=== PATIENT | female | born 1955 | race Caucasian/White ===

== ENCOUNTER → 2017-07-09 10:52 | Outpatient (POV) | payer BC, SELFPAY ==
--- NOTE | 2017-07-09 11:59 | P.CONS_ITS ---
[facility] Pain Management SOAP Note Subjective:: This patient is a pleasant 62-year-old white female who we are treating for degenerative disc disease of lumbar spine with lumbar radiculopathy symptoms. She is currently on [place] 5 mg 1 tablet 4 times a day. She is doing well with her medication. Her Anthony and Urine drug screen are all appropriate. # [id number]. We Will Refill Her [place] 5 Mg 1 Tablet 4 Times A Day. I Will Give Her 2 Months [place] of Prescriptions. 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 We Will Follow-Up with Her in 3 Months. Objective:: Alert and oriented ?3 no acute distress. Patient has a normal gait. Motor strength of the lower extremities is 5/5. There is no gross sensory deficit. Assessment:: Degenerative disease of lumbar spine with lumbar radiculopathy symptoms. Plan:: We will refill her [place] 5 mg 1 tablet 4 times a day. I will give her 2 months worth of prescriptions. She can draft roller picker her third month here in the pain clinic. Will follow up with her in 3 months.
[2017-07-09 12:05] LABS: Amphetamine/Metha Screen,Urine Negative ng/mL (<1000); Barbiturates Screen,Urine Negative ng/mL (<200); Benzodiazepines Screen,Urine Negative ng/mL (200); Cannabinoid Screen,Urine Negative ng/mL (<50); Cocaine Screen,Urine Negative ng/g (<300); Methadone Screen,Urine Negative ng/mL (<300); Opiate Screen,Urine Positive ng/mL (<300); Phencyclidine Screen,Urine Negative ng/mL (<25)
[2017-07-09 12:17] VITALS: BP 117/84; PULSE 99; RESP 16; O2SAT 97
[2017-07-13 16:10] LABS: Codeine Negative (Cutoff=100); Hydrocodone Positive (.); Hydromorphone Positive (.); Morphine Negative (Cutoff=100)
[2017-07-13 22:13] LABS: Opiates Positive (.)
== END ==
PROVIDERS: Family Provider Family Medicine; PCP Family Medicine; Visit Provider Anesthesiology
DX: M51.16 Intervertebral disc disorders with radiculopathy, lumbar region (principal)
CPT/HCPCS: 80305; 80361; 99212; G0480

== ENCOUNTER → 2017-10-15 09:22 | Outpatient (POV) | payer BC, SELFPAY ==
[2017-10-15 09:56] VITALS: BP 170/95; PULSE 85; RESP 18; TEMP 36.3; O2SAT 95; BMI 20.3
--- NOTE | 2017-10-15 10:46 | HMH.PAINSOAP ---
[facility] Pain Management SOAP Note Subjective:: Patient is a pleasant 62-year-old white female who presents today for medication refills. Patient is currently being treated for pain secondary to degenerative disc disease of lumbar spine with lumbar radiculopathy symptoms. She is currently on [place] 5 mg 1 p.o. 4 times daily. She states she did very well with this. 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 She denies any side effects to the medication. She rates her pain a 3 out of 10 today. Patient's THOMAS #[id number] reviewed and appropriate. Patient's UDS appropriate in the past we will send her for new urine drug screen today. ROS General: no recent weight change, no fever, no sleep disturbances Respiratory: no cough, no shortness of air, no recurring pulmonary infections Cardiovascular/Peripheral Vascular: No chest pain, No palpitations, no edema, no shortness of breath. Gastrointestinal: no incontinence, normal bowel movements reported Genitourinary: no incontinence Musculoskeletal: Back pain, bilateral leg pain Psychiatric: normal mood/ affect, Neurological: [denies weakness in extremities], [denies balance issues] Objective:: Physical Exam General: Alert and oriented x3, no acute distress, pleasant and cooperative, [on room air] Lungs: Resps E/U, Symmetrical chest expansion, Eyes: PERRL Musculoskeletal: Flexion and extension of lumbar spine somewhat guarded secondary to pain, deep tendon reflexes normal, strength in upper and lower extremities [5/5], normal gait noted Neurological: speech clear, trauma therapist equal, no gross sensory deficits Assessment:: Degenerative disc disease of the lumbar spine with lumbar radiculopathy Plan:: We will refill this patient's medication [place] 5 mg 1 p.o. 4 times daily. We will give HER-2 months worth of prescriptions and she can pick her third month up in the interim. Patient's Thomas and UDS both reviewed and appropriate. Dr. Eric has reviewed this chart and agrees with this plan of care. We will send the patient for urine drug screen today and monitor her for compliance. We will follow-up with this patient in 3 months. Patient has been prescribed a controlled substance after being counseled on the medication, medication safety, and possible side effects. THOMAS report has been obtained and reviewed prior to prescription and found to be appropriate. Opioid contract was reviewed and signed by the patient, and that they have agreed to all of the terms set forth by our compliance program. This note was dictated using voice recognition software and may contain errors or omissions
--- NOTE | 2017-10-15 10:49 | P.CONS_ITS ---
[facility] Pain Management SOAP Note Subjective:: Patient is a pleasant 62-year-old white female who presents today for medication refills. Patient is currently being treated for pain secondary to degenerative disc disease of lumbar spine with lumbar radiculopathy symptoms. She is currently on [place] 5 mg 1 p.o. 4 times daily. She states she did very well with this. 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 She denies any side effects to the medication. She rates her pain a 3 out of 10 today. Patient's THOMAS #[id number] reviewed and appropriate. Patient's UDS appropriate in the past we will send her for new urine drug screen today. ROS General: no recent weight change, no fever, no sleep disturbances Respiratory: no cough, no shortness of air, no recurring pulmonary infections Cardiovascular/Peripheral Vascular: No chest pain, No palpitations, no edema, no shortness of breath. Gastrointestinal: no incontinence, normal bowel movements reported Genitourinary: no incontinence Musculoskeletal: Back pain, bilateral leg pain Psychiatric: normal mood/ affect, Neurological: [denies weakness in extremities], [denies balance issues] Objective:: Physical Exam General: Alert and oriented x3, no acute distress, pleasant and cooperative, [ on room air] Lungs: Resps E/U, Symmetrical chest expansion, Eyes: PERRL Musculoskeletal: Flexion and extension of lumbar spine somewhat guarded secondary to pain, deep tendon reflexes normal, strength in upper and lower extremities [5/5], normal gait noted Neurological: speech clear, social human services assistants equal, no gross sensory deficits Assessment:: Degenerative disc disease of the lumbar spine with lumbar radiculopathy Plan:: We will refill this patient's medication [place] 5 mg 1 p.o. 4 times daily. We will give HER-2 months worth of prescriptions and she can pick her third month up in the interim. Patient's Thomas and UDS both reviewed and appropriate. Dr. Eric has reviewed this chart and agrees with this plan of care. We will send the patient for urine drug screen today and monitor her for compliance. We will follow-up with this patient in 3 months. Patient has been prescribed a controlled substance after being counseled on the medication, medication safety, and possible side effects. THOMAS report has been obtained and reviewed prior to prescription and found to be appropriate. Opioid contract was reviewed and signed by the patient, and that they have agreed to all of the terms set forth by our compliance program. This note was dictated using voice recognition software and may contain errors or omissions
[2017-10-15 12:37] LABS: Amphetamine/Metha Screen,Urine Negative ng/mL (<1000); Barbiturates Screen,Urine Negative ng/mL (<200); Benzodiazepines Screen,Urine Negative ng/mL (200); Cannabinoid Screen,Urine Negative ng/mL (<50); Cocaine Screen,Urine Negative ng/g (<300); Methadone Screen,Urine Negative ng/mL (<300); Opiate Screen,Urine Positive ng/mL (<300); Phencyclidine Screen,Urine Negative ng/mL (<25)
[2017-10-20 09:40] LABS: Codeine Negative (Cutoff=100); Hydrocodone Positive (.); Hydromorphone Negative (Cutoff=100); Morphine Negative (Cutoff=100)
[2017-10-22 06:14] LABS: Opiates Positive (.)
== END ==
PROVIDERS: Family Provider Family Medicine; PCP Family Medicine; Visit Provider Clinical Nurse Specialist Family Health
DX: M54.16 Radiculopathy, lumbar region (principal); Z79.899 Other long term (current) drug therapy
CPT/HCPCS: 80305; 80361; 80365; 99212; G0480

== ENCOUNTER → 2018-01-13 10:11 | Outpatient (POV) | payer SELFPAY ==
[2018-01-13 10:34] VITALS: BP 134/88; PULSE 86; RESP 18; O2SAT 98; BMI 20.7
--- NOTE | 2018-01-13 10:42 | HMH.PAINSOAP ---
[facility] Pain Management SOAP Note Subjective:: She is a pleasant 62-year-old white female who presents today for medication refills. Patient is currently being treated for pain secondary to degenerative disc disease of lumbar spine with lumbar radiculopathy symptoms. Patient is currently being medically managed with [place] 5 mg 1 p.o. 4 times daily. Patient is currently between jobs. Patient states she is doing well on her medication. She rates her pain a 3 out of 10 today. She denies any side effects. Patient's THOMAS #[id number] reviewed and appropriate. Patient's urine drug screen has been appropriate in the past. ROS General: no recent weight change, no fever, no sleep disturbances Respiratory: no cough, no shortness of air, no recurring pulmonary infections Cardiovascular/Peripheral Vascular: No chest pain, No palpitations, no edema, no shortness of breath. Gastrointestinal: no incontinence, normal bowel movements reported Genitourinary: no incontinence Musculoskeletal: Back pain, bilateral leg pain Psychiatric: normal mood/ affect Neurological: [denies weakness in extremities], [denies balance issues] Objective:: Physical Exam General: Alert and oriented x3, no acute distress, pleasant and cooperative, [on room air] Lungs: Resps E/U, Symmetrical chest expansion, Eyes: PERRL Musculoskeletal: Flexion and extension of lumbar spine somewhat guarded secondary to pain, deep tendon reflexes normal, strength in upper and lower extremities [5/5], slightly antalgic gait noted Neurological: speech clear, microsoft exchange administrator equal, no gross sensory deficits Assessment:: Degenerative disc disease of lumbar spine with lumbar radiculopathy Plan:: We will refill the patient's [place] 5 mg 1 p.o. 4 times daily we will give HER-2 months worth of prescriptions. 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 Patient's Thomas and UDS both reviewed and appropriate. Dr. Eric is reviewed this chart and agrees with this plan of care. We will follow-up with the patient in 3 months Patient has been prescribed a controlled substance after being counseled on the medication, medication safety, and possible side effects. THOMAS report has been obtained and reviewed prior to prescription and found to be appropriate. Opioid contract was reviewed and signed by the patient, and that they have agreed to all of the terms set forth by our compliance program. This note was dictated using voice recognition software and may contain errors or omissions
--- NOTE | 2018-01-13 10:45 | P.CONS_ITS ---
[facility] Pain Management SOAP Note Subjective:: She is a pleasant 62-year-old white female who presents today for medication refills. Patient is currently being treated for pain secondary to degenerative disc disease of lumbar spine with lumbar radiculopathy symptoms. Patient is currently being medically managed with [place] 5 mg 1 p.o. 4 times daily. Patient is currently between jobs. Patient states she is doing well on her medication. She rates her pain a 3 out of 10 today. She denies any side effects. Patient's THOMAS #[id number] reviewed and appropriate. Patient's urine drug screen has been appropriate in the past. ROS General: no recent weight change, no fever, no sleep disturbances Respiratory: no cough, no shortness of air, no recurring pulmonary infections Cardiovascular/Peripheral Vascular: No chest pain, No palpitations, no edema, no shortness of breath. Gastrointestinal: no incontinence, normal bowel movements reported Genitourinary: no incontinence Musculoskeletal: Back pain, bilateral leg pain Psychiatric: normal mood/ affect Neurological: [denies weakness in extremities], [denies balance issues] Objective:: Physical Exam General: Alert and oriented x3, no acute distress, pleasant and cooperative, [ on room air] Lungs: Resps E/U, Symmetrical chest expansion, Eyes: PERRL Musculoskeletal: Flexion and extension of lumbar spine somewhat guarded secondary to pain, deep tendon reflexes normal, strength in upper and lower extremities [5/5], slightly antalgic gait noted Neurological: speech clear, spanish translator equal, no gross sensory deficits Assessment:: Degenerative disc disease of lumbar spine with lumbar radiculopathy Plan:: We will refill the patient's [place] 5 mg 1 p.o. 4 times daily we will give HER-2 months worth of prescriptions. 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 Patient's Thomas and UDS both reviewed and appropriate. Dr. Eric is reviewed this chart and agrees with this plan of care. We will follow-up with the patient in 3 months Patient has been prescribed a controlled substance after being counseled on the medication, medication safety, and possible side effects. THOMAS report has been obtained and reviewed prior to prescription and found to be appropriate. Opioid contract was reviewed and signed by the patient, and that they have agreed to all of the terms set forth by our compliance program. This note was dictated using voice recognition software and may contain errors or omissions
== END ==
PROVIDERS: Family Provider Family Medicine; PCP Family Medicine; Visit Provider Clinical Nurse Specialist Family Health
DX: M51.16 Intervertebral disc disorders with radiculopathy, lumbar region (principal)
CPT/HCPCS: 99212

== ENCOUNTER → 2018-04-22 09:01 | Outpatient (POV) | payer OTHER, SELFPAY ==
[2018-04-22 09:48] VITALS: BP 189/98; PULSE 85; RESP 18; O2SAT 98; BMI 19.5
[2018-04-22 10:27] LABS: Amphetamine/Metha Screen,Urine Positive ng/mL (<1000); Barbiturates Screen,Urine Negative ng/mL (<200); Benzodiazepines Screen,Urine Negative ng/mL (<200); Cannabinoid Screen,Urine Negative ng/mL (<50); Cocaine Screen,Urine Negative ng/mL (<300); Methadone Screen,Urine Negative ng/mL (<300); Opiate Screen,Urine Positive ng/mL (<300); Phencyclidine Screen,Urine Negative ng/mL (<25)
--- NOTE | 2018-04-22 12:02 | HMH.PAINSOAP ---
[facility] Pain Management SOAP Note Subjective:: She is a pleasant 63-year-old white female who presents today for medication refills. Patient is currently being treated for pain secondary to degenerative disc disease lumbar spine with lumbar radiculopathy. She rates her pain a 3 out of 10 today. She is currently being medically managed with [place] 5 mg 1 p.o. 4 times daily. She is currently working at 2 jobs. She denies side effects or medication. Patient's THOMAS #[id number] reviewed and appropriate. Patient's urine drug screen is appropriate today. Patient does show positive for amphetamines however she has been on Sudafed. ROS General: no recent weight change, no fever, no sleep disturbances Respiratory: no cough, no shortness of air, no recurring pulmonary infections Cardiovascular/Peripheral Vascular: No chest pain, No palpitations, no edema, no shortness of breath. Gastrointestinal: no incontinence, normal bowel movements reported Genitourinary: no incontinence Musculoskeletal: Back pain, bilateral leg pain Psychiatric: normal mood/ affect, Neurological: [denies weakness in extremities], [denies balance issues] Objective:: Physical Exam General: Alert and oriented x3, no acute distress, pleasant and cooperative, [on room air] Lungs: Resps E/U, Symmetrical chest expansion, Eyes: PERRL Musculoskeletal: Flexion and extension of lumbar spine somewhat guarded secondary to pain, deep tendon reflexes normal, strength in upper and lower extremities [5/5], slightly antalgic gait noted Neurological: speech clear, outside sales equal, no gross sensory deficits Assessment:: degenerative disc disease lumbar spine with lumbar radiculopathy Plan:: We will follow-up with the patient in 3 months. We will refill her [place] 5 mg 1 p.o. 4 times daily and give her 2 months worth. Patient can come and picker feeder her third 1 in the interim. Thomas and urine drug screen reviewed. Dr. Eric has reviewed this chart and agrees with this plan of care. Patient has been prescribed a controlled substance after being counseled on the medication, medication safety, and possible side effects. THOMAS report has been obtained and reviewed prior to prescription and found to be appropriate. Opioid contract was reviewed and signed by the patient, and that they have agreed to all of the terms set forth by our compliance program. This note was dictated using voice recognition software and may contain errors or omissions
[2018-04-28 09:09] LABS: Codeine Negative (Cutoff=100); Hydrocodone Positive (.); Hydromorphone Negative (Cutoff=100); Morphine Negative (Cutoff=100)
[2018-04-28 17:17] LABS: Opiates Positive (.)
== END ==
PROVIDERS: Family Provider Family Medicine; PCP Family Medicine; Visit Provider Clinical Nurse Specialist Family Health
DX: M51.36 Other intervertebral disc degeneration, lumbar region (principal)
CPT/HCPCS: 80305; 80361; 80365; 99213; G0480

== ENCOUNTER → 2018-07-14 11:14 | Outpatient (POV) | payer OTHER, SELFPAY ==
[2018-07-14 11:29] VITALS: BP 174/90; PULSE 84; RESP 18; O2SAT 98; BMI 20.3
--- NOTE | 2018-07-14 11:34 | HMH.PAINSOAP ---
[facility] Pain Management SOAP Note Subjective:: Patient is a pleasant 63-year-old white female who presents today for medication refills. She is currently being treated for pain secondary to degenerative disc disease of the lumbar spine with lumbar radiculopathy she rates her pain today a 4 out of 10. She is currently being medically managed with [place] 5 mg 1 p.o. 4 times daily. She is currently working 2 jobs. She denies any side effects or medication. THOMAS #[id number] reviewed. ROS General: no recent weight change, no fever, no sleep disturbances Respiratory: no cough, no shortness of air, no recurring pulmonary infections Cardiovascular/Peripheral Vascular: No chest pain, No palpitations, no edema, no shortness of breath. Gastrointestinal: no incontinence, normal bowel movements reported Genitourinary: no incontinence Musculoskeletal: Back pain, Bilateral leg pain Psychiatric: normal mood/ affect Neurological: [denies weakness in extremities], [denies balance issues] Objective:: Physical Exam General: Alert and oriented x3, no acute distress, pleasant and cooperative, [on room air] Lungs: Resps E/U, Symmetrical chest expansion, Eyes: PERRL Musculoskeletal: Flexion and extension of lumbar spine somewhat guarded secondary to pain, deep tendon reflexes normal, strength in upper and lower extremities [5/5], slightly antalgic gait noted Neurological: speech clear, soa engineer equal, no gross sensory deficits Assessment:: Degenerative disc disease lumbar spine with lumbar radiculopathy Plan:: We will follow-up with the patient in 3 months. We will refill her [place] 5 mg 1 p.o. 4 times daily and give her 2 months worth. Patient can come and mushroom picker her third month in the interim. Dr. Eric is reviewed this chart and agrees with this plan of care. Patient has been prescribed a controlled substance after being counseled on the medication, medication safety, and possible side effects. THOMAS report has been obtained and reviewed prior to prescription and found to be appropriate. Opioid contract was reviewed and signed by the patient, and that they have agreed to all of the terms set forth by our compliance program. This note was dictated using voice recognition software and may contain errors or omissions
--- NOTE | 2018-07-14 11:37 | P.CONS_ITS ---
[facility] Pain Management SOAP Note Subjective:: Patient is a pleasant 63-year-old white female who presents today for medication refills. She is currently being treated for pain secondary to degenerative disc disease of the lumbar spine with lumbar radiculopathy she rates her pain today a 4 out of 10. She is currently being medically managed with [place] 5 mg 1 p.o. 4 times daily. She is currently working 2 jobs. She denies any side effects or medication. THOMAS #[id number] reviewed. ROS General: no recent weight change, no fever, no sleep disturbances Respiratory: no cough, no shortness of air, no recurring pulmonary infections Cardiovascular/Peripheral Vascular: No chest pain, No palpitations, no edema, no shortness of breath. Gastrointestinal: no incontinence, normal bowel movements reported Genitourinary: no incontinence Musculoskeletal: Back pain, Bilateral leg pain Psychiatric: normal mood/ affect Neurological: [denies weakness in extremities], [denies balance issues] Objective:: Physical Exam General: Alert and oriented x3, no acute distress, pleasant and cooperative, [on room air] Lungs: Resps E/U, Symmetrical chest expansion, Eyes: PERRL Musculoskeletal: Flexion and extension of lumbar spine somewhat guarded secondary to pain, deep tendon reflexes normal, strength in upper and lower extremities [5/5], slightly antalgic gait noted Neurological: speech clear, city secretary equal, no gross sensory deficits Assessment:: Degenerative disc disease lumbar spine with lumbar radiculopathy Plan:: We will follow-up with the patient in 3 months. We will refill her [place] 5 mg 1 p.o. 4 times daily and give her 2 months worth. Patient can come and picking machine operator helper her third month in the interim. Dr. Eric is reviewed this chart and agrees with this plan of care. Patient has been prescribed a controlled substance after being counseled on the medication, medication safety, and possible side effects. THOMAS report has been obtained and reviewed prior to prescription and found to be appropriate. Opioid contract was reviewed and signed by the patient, and that they have agreed to all of the terms set forth by our compliance program. This note was dictated using voice recognition software and may contain errors or omissions
== END ==
PROVIDERS: PCP Family Medicine; Visit Provider Clinical Nurse Specialist Family Health
DX: M51.16 Intervertebral disc disorders with radiculopathy, lumbar region (principal)
CPT/HCPCS: 99213

== ENCOUNTER → 2018-10-28 10:01 | Outpatient (POV) | payer OTHER, SELFPAY ==
--- NOTE | 2018-10-28 10:09 | HMH.PAINSOAP ---
[facility] Pain Management SOAP Note Subjective:: Is a very pleasant 63-year-old white female who presents today for medication refills and to discuss her treatment. 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 Patient had RFA 2 years ago in which she is gotten 80% relief until just recently. Patient would like to repeat this. She states her left side is worse. She has a positive Kemps test. And positive facet loading lumbar spine. She has had pain for over 3 years and has failed conservative treatments over the past 6 months. She has had 2 rounds of medial branch blocks which were successful in alleviating her pain for some time. Patient is also on [place] 5 mg 1 p.o. 4 times daily. She denies side effects. Is currently working 2 jobs. Thomas reviewed and appropriate. ROS General: no recent weight change, no fever, no sleep disturbances Respiratory: no cough, no shortness of air, no recurring pulmonary infections Cardiovascular/Peripheral Vascular: No chest pain, No palpitations, no edema, no shortness of breath. Gastrointestinal: no incontinence, normal bowel movements reported Genitourinary: no incontinence Musculoskeletal: Back pain Psychiatric: normal mood/ affect Neurological: [denies weakness in extremities], [denies balance issues] Objective:: Physical Exam General: Alert and oriented x3, no acute distress, pleasant and cooperative, [on room air] Lungs: Resps E/U, Symmetrical chest expansion, Eyes: PERRL Musculoskeletal: Flexion and extension of Lumbar spine somewhat guarded secondary to pain, deep tendon reflexes normal, strength in upper and lower extremities [5/5], slightly antalgic gait noted, positive facet loading lumbar spine Neurological: speech clear, professional benefits sales consultant equal, no gross sensory deficits Assessment:: Degenerative disc disease lumbar spine with lumbar spondylosis and facet arthropathy Plan:: We will schedule her for an RFA of the L4-L5 levels bilaterally we will start with the left side and repeated in 2 weeks on the right side. We will refill her [place] 5 mg 1 p.o. 4 times daily and give her 2 months with a prescription she can pick her third month up in the interim. I will follow-up with the patient after this and reassess her symptoms. She is been instructed to call the office if she has any issues prior to her next appointment. She is continuing a home stretching program and is not on any anticoagulation therapy. Patient has been prescribed a controlled substance after being counseled on the medication, medication safety, and possible side effects. THOMAS report has been obtained and reviewed prior to prescription and found to be appropriate. Opioid contract was reviewed and signed by the patient, and that they have agreed to all of the terms set forth by our compliance program. Dr. Eric has reviewed this note and agrees with this plan of care. This note was dictated using voice recognition software and may contain errors or omissions
--- NOTE | 2018-10-28 10:13 | P.CONS_ITS ---
[facility] Pain Management SOAP Note Subjective:: Is a very pleasant 63-year-old white female who presents today for medication refills and to discuss her treatment. 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 Patient had RFA 2 years ago in which she is gotten 80% relief until just recently. Patient would like to repeat this. She states her left side is worse. She has a positive Kemps test. And positive facet loading lumbar spine. She has had pain for over 3 years and has failed conservative treatments over the past 6 months. She has had 2 rounds of medial branch blocks which were successful in alleviating her pain for some time. Patient is also on [place] 5 mg 1 p.o. 4 times daily. She denies side effects. Is currently working 2 jobs. Thomas reviewed and appropriate. ROS General: no recent weight change, no fever, no sleep disturbances Respiratory: no cough, no shortness of air, no recurring pulmonary infections Cardiovascular/Peripheral Vascular: No chest pain, No palpitations, no edema, no shortness of breath. Gastrointestinal: no incontinence, normal bowel movements reported Genitourinary: no incontinence Musculoskeletal: Back pain Psychiatric: normal mood/ affect Neurological: [denies weakness in extremities], [denies balance issues] Objective:: Physical Exam General: Alert and oriented x3, no acute distress, pleasant and cooperative, [on room air] Lungs: Resps E/U, Symmetrical chest expansion, Eyes: PERRL Musculoskeletal: Flexion and extension of Lumbar spine somewhat guarded secondary to pain, deep tendon reflexes normal, strength in upper and lower extremities [5/5], slightly antalgic gait noted, positive facet loading lumbar spine Neurological: speech clear, rug inspector helper equal, no gross sensory deficits Assessment:: Degenerative disc disease lumbar spine with lumbar spondylosis and facet arthropathy Plan:: We will schedule her for an RFA of the L4-L5 levels bilaterally we will start with the left side and repeated in 2 weeks on the right side. We will refill her Ponderosa 5 mg 1 p.o. 4 times daily and give her 2 months with a prescription she can pick her third month up in the interim. I will follow-up with the ladonna koenig after this and reassess her symptoms. She is been instructed to call the office if she has any issues prior to her next appointment. She is continuing a home stretching program and is not on any anticoagulation therapy. Patient has been prescribed a controlled substance after being counseled on the medication, medication safety, and possible side effects. THOMAS report has been obtained and reviewed prior to prescription and found to be appropriate. Opioid contract was reviewed and signed by the patient, and that they have agreed to all of the terms set forth by our compliance program. Dr. Eric has reviewed this note and agrees with this plan of care. This note was dictated using voice recognition software and may contain errors or omissions
[2018-10-28 10:18] VITALS: BP 178/95; PULSE 82; RESP 18; O2SAT 99; BMI 21.2
[2018-10-28 12:01] LABS: Amphetamine/Metha Screen,Urine Negative ng/mL (<1000); Barbiturates Screen,Urine Negative ng/mL (<200); Benzodiazepines Screen,Urine Negative ng/mL (<200); Cannabinoid Screen,Urine Negative ng/mL (<50); Cocaine Screen,Urine Negative ng/mL (<300); Methadone Screen,Urine Negative ng/mL (<300); Opiate Screen,Urine Positive ng/mL (<300); Phencyclidine Screen,Urine Negative ng/mL (<25)
[2018-11-04 01:06] LABS: Codeine Negative (Cutoff=100); Hydrocodone Positive (.); Hydromorphone Negative (Cutoff=100); Morphine Negative (Cutoff=100)
[2018-11-04 10:12] LABS: Opiates Positive (.)
== END ==
PROVIDERS: PCP Family Medicine; Visit Provider Clinical Nurse Specialist Family Health
DX: M51.36 Other intervertebral disc degeneration, lumbar region (principal); M47.896 Other spondylosis, lumbar region; M54.06 Panniculitis affecting regions of neck and back, lumbar region; Z79.899 Other long term (current) drug therapy
CPT/HCPCS: 80305; 80361; 80365; 99212; G0480

== ENCOUNTER 2018-12-26 10:11 | Day surgery (SDC) | payer OTHER, SELFPAY ==
[2018-12-26 10:23] VITALS: BP 158/91; PULSE 87; RESP 18; O2SAT 100; BMI 20.3
[2018-12-26 10:57] VITALS: BP 135/85; PULSE 69; RESP 18; O2SAT 98
[2018-12-26 10:58] VITALS: BP 132/88; PULSE 69; RESP 18; O2SAT 98
--- NOTE | 2018-12-26 11:17 | HMH.PMPROC ---
- Procedure Date: 12/26/18 Time: 11:17 Anesthesiologist:: Shahram Eric MD Complications:: None Pre-procedure Diagnosis:: Degenerative disc disease of lumbar spine with lumbar spondylosis and facet arthropathy of lumbar spine Post-procedure Diagnosis:: Same Indications for Procedure:: This patient is a pleasant 63-year-old white female who we are treating for low back pain with lumbar spondylosis and facet arthropathy. She has increasing pain in the low back. She is previously had an RFA 2 years ago and this gave her 80% relief of her pain symptoms for almost 2 years. Her pain is now starting to come back. She is failed conservative treatments. She presents for repeat radiofrequency ablation to the facet joints of L4-5 and L5-S1. We will start with the left side today followed by the right side in 2 weeks. Procedure Details:: Lumbar RFA informed consent was obtained and the risk and benefits of the procedure was explained to the patient. Patient was placed prone on the procedure table. The patient was prepped and draped in sterile fashion. C-arm fluoroscopy was used to view the lumbar spine. The skin and subcutaneous tissues were anesthetized using lidocaine. I placed 20-gauge RF needles into the facet joints of L4-L5 and L5-S1 levels on the left side. We underwent sensory stimulation. There is good sensory stimulation at 0.8 V. We underwent motor stimulation. There is no motor stimulation at 2 V. We then anesthetized these levels with lidocaine and Depo-Medrol. I used a total of 40 mg Depo-Medrol for both levels. I then burned both levels of L4-5 and L5-S1 facet joint/medial branches on the left side for 4 minutes at 80?C. Patient tolerated the procedure well with no complication. Plan and Disposition:: We will follow-up with this patient in 2 weeks. Will reevaluate her symptoms and plan on radiofrequency ablation to the facet joint/medial branches of L4-5 and L5-S1 on the right side.
[2018-12-26 11:18] VITALS: BP 134/79; PULSE 81; RESP 18; O2SAT 95
--- NOTE | 2019-01-12 13:36 | PC.NURSE ---
TIZANIDINE 4MG PO TID WITH 2 REFILLS FAXED TO CLINIC PHARMACY PER PROVIDER ORDER
== END 2018-12-26 11:19 | disposition home or self-care (01) ==
LOC: SC.PAINP 10:12
PROVIDERS: PCP Family Medicine; Visit Provider Anesthesiology
DX: M51.36 Other intervertebral disc degeneration, lumbar region (principal); M47.896 Other spondylosis, lumbar region; M54.06 Panniculitis affecting regions of neck and back, lumbar region
CPT/HCPCS: 64635; 64636; J1040

== ENCOUNTER → 2019-03-03 10:46 | Outpatient (POV) | payer OTHER, SELFPAY ==
[2019-03-03 11:09] VITALS: BP 151/93; PULSE 97; RESP 18; O2SAT 98; BMI 20.7
--- NOTE | 2019-03-03 12:16 | HMH.PAINSOAP ---
[facility] Pain Management SOAP Note Subjective:: Patient is a pleasant 64-year-old white female who we are treating for low back pain. Patient has undergone a left sided RFA at the L4-L5 L5-S1 levels. She is having no pain. Overall she is doing well. She needs to repeat this on the right side. She is had 2 rounds of medial branch blocks on the right side with good relief getting up to 80% relief for a week and a half. She is a candidate for a neurotomy. She rates her right-sided back pain at is an 8 out of 10 she is a positive facet loading on the side along with positive Kemps test. She is continuing to try to work. Is also [place] 5 mg 1 p.o. 4 times daily which she hopes to decrease after her RFA. She is continuing a home stretching program. She is failed other conservative measures over the last 6 months including injective therapy anti-inflammatories medications and physical therapy. [facility] #[id number] reviewed and appropriate. Urine drug screens have been appropriate ROS General: no recent weight change, no fever, no sleep disturbances Respiratory: no cough, no shortness of air, no recurring pulmonary infections Cardiovascular/Peripheral Vascular: No chest pain, No palpitations, no edema, no shortness of breath. Gastrointestinal: no incontinence, normal bowel movements reported Genitourinary: no incontinence Musculoskeletal: Back pain on the right side Psychiatric: normal mood/ affect, , Neurological: [denies weakness in extremities], [denies balance issues] Objective:: Physical Exam General: Alert and oriented x3, no acute distress, pleasant and cooperative, [on room air] Lungs: Resps E/U, Symmetrical chest expansion, Eyes: PERRL Musculoskeletal: Flexion and extension of lumbar spine somewhat guarded secondary to pain, deep tendon reflexes normal, strength in upper and lower extremities [5/5], [abnormal gait noted] Neurological: speech clear, full stack engineer equal, no gross sensory deficits Assessment:: Degenerative disc disease lumbar spine with lumbar spondylosis and facet arthropathy of lumbar spine Plan:: We will refill her [place] 5 mg 1 p.o. 4 times daily and give her 2 months worth of medication. We will also schedule her for a right L4-L5 L5-S1 rhizotomy given the efficacy of the medial branch blocks I believe it would be beneficial for her. I will follow-up with the patient after this reassess her symptoms at that time. Patient has been prescribed a controlled substance after being counseled on the medication, medication safety, and possible side effects. THOMAS report has been obtained and reviewed prior to prescription and found to be appropriate. Opioid contract was reviewed and signed by the patient, and that they have agreed to all of the terms set forth by our compliance program. Dr. Eric has reviewed this note and agrees with this plan of care. This note was dictated using voice recognition software and may contain errors or omissions Pain Management Hx Components *Have you ever received a pneumonia vaccine?: Yes *Have you received a flu vaccine this season?: Yes - *Social History *Occupational Status:: other *Travel in the last 8 weeks: None
--- NOTE | 2019-03-03 12:19 | P.CONS_ITS ---
[facility] Pain Management SOAP Note Subjective:: Patient is a pleasant 64-year-old white female who we are treating for low back pain. Patient has undergone a left sided RFA at the L4-L5 L5-S1 levels. She is having no pain. Overall she is doing well. She needs to repeat this on the right side. She is had 2 rounds of medial branch blocks on the right side with good relief getting up to 80% relief for a week and a half. She is a candidate for a neurotomy. She rates her right-sided back pain at is an 8 out of 10 she is a positive facet loading on the side along with positive Kemps test. She is continuing to try to work. Is also [place] 5 mg 1 p.o. 4 times daily which she hopes to decrease after her RFA. She is continuing a home stretching program. She is failed other conservative measures over the last 6 months including injective therapy anti-inflammatories medications and physical therapy. [facility] #[id number] reviewed and appropriate. Urine drug screens have been appropriate ROS General: no recent weight change, no fever, no sleep disturbances Respiratory: no cough, no shortness of air, no recurring pulmonary infections Cardiovascular/Peripheral Vascular: No chest pain, No palpitations, no edema, no shortness of breath. Gastrointestinal: no incontinence, normal bowel movements reported Genitourinary: no incontinence Musculoskeletal: Back pain on the right side Psychiatric: normal mood/ affect, , Neurological: [denies weakness in extremities], [denies balance issues] Objective:: Physical Exam General: Alert and oriented x3, no acute distress, pleasant and cooperative, [on room air] Lungs: Resps E/U, Symmetrical chest expansion, Eyes: PERRL Musculoskeletal: Flexion and extension of lumbar spine somewhat guarded secondary to pain, deep tendon reflexes normal, strength in upper and lower extremities [5/5], [abnormal gait noted] Neurological: speech clear, make up arranger equal, no gross sensory deficits Assessment:: Degenerative disc disease lumbar spine with lumbar spondylosis and facet arthropathy of lumbar spine Plan:: We will refill her [place] 5 mg 1 p.o. 4 times daily and give her 2 months worth of medication. We will also schedule her for a right L4-L5 L5-S1 rhizotomy given the efficacy of the medial branch blocks I believe it would be beneficial for her. I will follow-up with the patient after this reassess her symptoms at that time. Patient has been prescribed a controlled substance after being counseled on the medication, medication safety, and possible side effects. THOMAS report has been obtained and reviewed prior to prescription and found to be appropriate. Opioid contract was reviewed and signed by the patient, and that they have agreed to all of the terms set forth by our compliance program. Dr. Eric has reviewed this note and agrees with this plan of care. This note was dictated using voice recognition software and may contain errors or omissions Pain Management Hx Components *Have you ever received a pneumonia vaccine?: Yes *Have you received a flu vaccine this season?: Yes - *Social History *Occupational Status:: other *Travel in the last 8 weeks: None
== END ==
PROVIDERS: PCP Family Medicine; Visit Provider Clinical Nurse Specialist Family Health
DX: M51.36 Other intervertebral disc degeneration, lumbar region (principal); M54.06 Panniculitis affecting regions of neck and back, lumbar region; M47.896 Other spondylosis, lumbar region
CPT/HCPCS: 99212

== ENCOUNTER → 2019-04-21 09:09 | Outpatient (POV) | payer OTHER, SELFPAY ==
[2019-04-21 09:21] VITALS: BP 150/101; PULSE 101; RESP 18; O2SAT 98; BMI 19.5
[2019-04-21 13:34] LABS: Amphetamine/Metha Screen,Urine Positive ng/mL (<1000); Barbiturates Screen,Urine Negative ng/mL (<200); Benzodiazepines Screen,Urine Negative ng/mL (<200); Cannabinoid Screen,Urine Negative ng/mL (<50); Cocaine Screen,Urine Negative ng/mL (<300); Methadone Screen,Urine Negative ng/mL (<300); Opiate Screen,Urine Negative ng/mL (<300); Phencyclidine Screen,Urine Negative ng/mL (<25)
--- NOTE | 2019-04-21 15:18 | P.CONS_ITS ---
[facility] Pain Management SOAP Note Subjective:: She is a pleasant 64-year-old white female who presents today for follow-up after recent RFA. Patient is doing extremely well rating her pain a 3 out of 10. Patient states that she has had 90% relief with her recent RFA. She is also [place] 5 mg 1 p.o. 4 times daily. We will refill this for her today she denies side effects to this. Her urine drug screens have been appropriate. Thomas #[id number] reviewed and appropriate. ROS General: no recent weight change, no fever, no sleep disturbances Respiratory: no cough, no shortness of air, no recurring pulmonary infections Cardiovascular/Peripheral Vascular: No chest pain, No palpitations, no edema, no shortness of breath. Gastrointestinal: no new onset incontinence, normal bowel movements reported Genitourinary: no new onset incontinence Musculoskeletal: Back pain Psychiatric: normal mood/ affect Neurological: [denies new onset weakness in extremities], [denies new onset balance issues] Objective:: Physical Exam General: Alert and oriented x3, no acute distress, pleasant and cooperative, [on room air] Lungs: Resps E/U, Symmetrical chest expansion, Eyes: PERRL Musculoskeletal: Flexion and extension of lumbar spine somewhat guarded secondary to pain, deep tendon reflexes normal, strength in upper and lower extremities [5/5], [abnormal gait noted] Neurological: speech clear, transfer table operator equal, no gross sensory deficits Assessment:: Degenerative disc disease lumbar spine with lumbar spondylosis facet arthropathy Plan:: We will refill the patient's [place] 5 mg 1 p.o. 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 We will see her back in 3 months reassess her symptoms at that time she is been instructed to call the office if she has any issues prior to her next appointment. Patient has been prescribed a controlled substance after being counseled on the medication, medication safety, and possible side effects. THOMAS report has been obtained and reviewed prior to prescription and found to be appropriate. Opioid contract was reviewed and signed by the patient, and that they have agreed to all of the terms set forth by our compliance program. Dr. Eric has reviewed this note and agrees with this plan of care. This note was dictated using voice recognition software and may contain errors or omissions [facility] History I have reviewed the patient's past medical history: Yes Medical History: Reports:: Hyperlipidemia, Hypertension Denies:: Cancer, Diabetes Mellitus Type 1, Diabetes Mellitus Type 2, MRSA, Seizures *Have you ever received a pneumonia vaccine?: No *Have you received a flu vaccine this season?: No Other Surgeries: Yes: No Previous Surgery Amputation: No Fractures: No - *Social History Smoking Status: Current every day smoker Tobacco Type: cigarettes # Packs/Day (cigarettes): 1 Alcohol Intake: never *Occupational Status:: employed Housing: house Household Members: spouse *Travel in the last 8 weeks: None Family Hx:: No significant family history
[2019-04-25 16:14] LABS: Codeine Negative (Cutoff=100); Hydrocodone Positive (.); Hydromorphone Negative (Cutoff=100); Morphine Negative (Cutoff=100)
[2019-04-25 20:01] LABS: Opiates Positive (.)
== END ==
PROVIDERS: PCP Family Medicine; Visit Provider Clinical Nurse Specialist Family Health
DX: M51.36 Other intervertebral disc degeneration, lumbar region (principal); M47.816 Spondylosis without myelopathy or radiculopathy, lumbar region
CPT/HCPCS: 80305; 80361; 80365; 99212; G0480

== ENCOUNTER → 2019-07-20 09:23 | Outpatient (POV) | payer MEDICAID, SELFPAY ==
[2019-07-20 09:36] VITALS: BP 169/89; PULSE 97; RESP 18; O2SAT 99; BMI 20.3
--- NOTE | 2019-07-20 10:26 | HMH.PAINSOAP ---
[facility] Pain Management SOAP Note Subjective:: Patient is a pleasant 64-year-old white female who presents today for follow-up. Patient was supposed to go for urine drug screen on 26 June and then again on the however she stated due to work she was unable to go. Patient rates her pain a 3 out of 10. We discussed that we would not be able to continue her [place]. Patient understands this. [facility] #[id number] reviewed. Patient will be given 1 month of medication. Patient would like to continue with facet joint injections. She states that she gets up to 80% relief with these injections for several months. Patient states that her left side of her body has been bothering her. She is interested in pursuing some injections at this time. She is not on any anticoagulation therapy and is continuing a home stretching program. ROS General: no recent weight change, no fever, no sleep disturbances Respiratory: no cough, no shortness of air, no recurring pulmonary infections Cardiovascular/Peripheral Vascular: No chest pain, No palpitations, no edema, no shortness of breath. Gastrointestinal: no new onset incontinence, normal bowel movements reported Genitourinary: no new onset incontinence Musculoskeletal: Back pain Psychiatric: normal mood/ affect, Neurological: [denies new onset weakness in extremities], [denies new onset balance issues] Objective:: Physical Exam General: Alert and oriented x3, no acute distress, pleasant and cooperative, [on room air] Lungs: Resps E/U, Symmetrical chest expansion, Eyes: PERRL Musculoskeletal: Flexion and extension of lumbar spine somewhat guarded secondary to pain, deep tendon reflexes normal, strength in upper and lower extremities [5/5], slightly antalgic gait noted, positive Kemps test, positive facet loading lumbar spine Neurological: speech clear, cook helper vegetable equal, no gross sensory deficits Assessment:: Degenerative disc disease lumbar spine with lumbar spondylosis and facet arthropathy Plan:: We will give the patient 1 month of [place] 5 mg 1 p.o. 4 times daily and she can go to her primary care for consultation in regards to move forward movement with her narcotics. She will not be receiving any more narcotics from our clinic. We also set her up for an L4-L5 left-sided facet joint injection. Patient states most of her pain is on this left side. Dr. Eric has reviewed this note and agrees with this plan of care. This note was dictated using voice recognition software and may contain errors or omissions [facility] History I have reviewed the patient's past medical history: Yes Medical History: Reports:: Hyperlipidemia, Hypertension Denies:: Cancer, Diabetes Mellitus Type 1, Diabetes Mellitus Type 2, MRSA, Seizures *Have you ever received a pneumonia vaccine?: Yes *Have you received a flu vaccine this season?: Yes Other Surgeries: Yes: No Previous Surgery Amputation: No Fractures: No - *Social History Smoking Status: Current every day smoker Tobacco Type: cigarettes # Packs/Day (cigarettes): 1 Alcohol Intake: never *Occupational Status:: other Housing: house Household Members: spouse *Travel in the last 8 weeks: None Family Hx:: No significant family history
== END ==
PROVIDERS: PCP Family Medicine; Visit Provider Clinical Nurse Specialist Family Health
DX: M51.36 Other intervertebral disc degeneration, lumbar region (principal); M47.816 Spondylosis without myelopathy or radiculopathy, lumbar region; M54.06 Panniculitis affecting regions of neck and back, lumbar region; E78.5 Hyperlipidemia, unspecified; I10 Essential (primary) hypertension; Z72.0 Tobacco use
CPT/HCPCS: 99212

== ENCOUNTER → 2020-04-21 11:02 | Outpatient (POV) | payer MEDICAID, SELFPAY ==
[2020-04-21 11:18] VITALS: BP 112/77; PULSE 71; RESP 18; TEMP 36.8; O2SAT 98; BMI 20.9
--- NOTE | 2020-04-21 11:42 | HMH.PAINSOAP ---
[facility] Pain Management SOAP Note Subjective:: Patient is a 65-year-old white female who presents today for follow-up. She has been treated for chronic low back pain with lumbar radiculopathy symptoms worsen lumbar spondylosis and facet arthropathy lumbar spine. In the past, the patient was prescribed [place] 5 mg 1 tablet p.o. 4 times daily. Unfortunately, the patient was unable to go to to random urine drug screens. She says that she was working at that time. As a result, the patient was no longer prescribe the medication. She is here today with complaints of severe low back pain with radiation into her left leg and left hip. She also has right low back pain with numbness and tingling and burning sensation. The pain is worse when she is leaning forward and turning from side to side. Patient is requesting her [place] to be prescribed again. She is currently prescribed ties Aliyah Kumar by her primary care provider. She is very tearful today. Patient says I have not been doctor shopping and have not taken the medication since my last visit with you. . Patient says that she had to work and cannot take off at that time for the urine drug screens. She does rate her pain a 7 out of 10 today. Review of Systems General: No recent weight changes, no fever, no sleep disturbances Respiratory: No cough, no shortness of air, no recurring pulmonary infections Cardiovascular/peripheral vascular: No chest pain, no palpitations, no edema, no shortness of breath Gastrointestinal: No new onset incontinence, normal bowel movements reported Genitourinary: No new onset incontinence Musculoskeletal: Low back pain bilaterally, left hip pain, left leg pain, right hip pain with numbness and tingling Psychiatric: Normal mood/affect Neurological: [Denies weakness in extremities], [denies balance issues] Objective:: Physical exam General: Alert and oriented x3, no acute distress, pleasant and cooperative, [on room air] Lungs: Respirations even and unlabored, symmetrical chest expansion Eyes: PERRL Musculoskeletal: Flexion and extension of lumbar spine somewhat guarded secondary to pain, deep tendon reflexes normal, strength in upper and lower extremities [5/5], [abnormal gait noted], positive Kemps test Neurological: Speech clear, cartoon designer equal, no gross sensory deficit Assessment:: Degenerative disc disease lumbar spine with facet arthropathy lumbar spine and lumbar spondylosis Plan:: Patient I had a long discussion concerning her oral medications. She understands we will not be able to continue to prescribe these medicines due to failed urine drug screens. We can, however, schedule her for repeat medial branch blocks/facet joint injections at L4-L5 L5-S1. Patient got up to 80% relief with these injections in the past for greater than 2 to 3 weeks. She has tried physical therapy with no relief. She tried home stretching program and anti-inflammatories. She is currently on tizanidine. She does use ice and heat therapies. She is not on any anticoagulation therapy. We will see her back in the clinic after her injections to reassess her symptoms. She has been instructed to contact the clinic if she has any concerns before next appointment. The patient and I specifically discussed risk factors for COVID19. These risks include, but are not limited to age greater than 60, heart or lung disease, diabetes, immunosuppression, and travel. We also discussed NSAIDs may worsen COVID19 infection or symptoms. Patient should not use NSAIDs to treat COVID19 signs or symptoms. Patient was also informed that any type of corticosteroid of any form (oral or injection) will decrease the patient's immune system response and may increase the likelihood of COVID19 infection [address] symptoms[address] Eric has reviewed this note and agrees with this plan of care. This note was dictated using voice recognition software and make contain errors or omissions. [facility] History I have reviewed
== END ==
PROVIDERS: PCP Family Medicine; Visit Provider Clinical Nurse Specialist Family Health
DX: M51.36 Other intervertebral disc degeneration, lumbar region (principal); M47.816 Spondylosis without myelopathy or radiculopathy, lumbar region; M12.88 Other specific arthropathies, not elsewhere classified, other specified site
CPT/HCPCS: 99212

== ENCOUNTER 2020-05-06 13:09 | Day surgery (SDC) | payer MEDICAID, SELFPAY ==
[2020-05-06 13:10] VITALS: BP 187/109; PULSE 75; RESP 18; TEMP 36.4; O2SAT 99; BMI 21.2
[2020-05-06 13:39] VITALS: BP 125/74; PULSE 85; RESP 18
[2020-05-06 13:40] VITALS: BP 142/78; PULSE 89; RESP 18; O2SAT 98
--- NOTE | 2020-05-06 13:48 | HMH.PMPROC ---
- Procedure Date: 05/06/20 Time: 13:48 Anesthesiologist:: Shahram Eric MD Complications:: None Pre-procedure Diagnosis:: Degenerative disc disease of lumbar spine with lumbar spondylosis and lumbar facet arthropathy Post-procedure Diagnosis:: Same Indications for Procedure:: This patient is a pleasant 65-year-old white female who we are treating for low back pain with lumbar spondylosis and lumbar facet arthropathy. She has increasing pain in her low back. She is tender over the facet joints of L4-5 and L5-S1 bilaterally. She did very well with previous RFA to the lumbar facet joints of L4-5 and L5-S1. Procedure Details:: Lumbar medial branch block Informed consent was obtained and the risks and benefits of the procedure was explained to the patient. The back was prepped using ChloraPrep. The skin and subcutaneous tissues were anesthetized using lidocaine. I placed 22-gauge spinal needles into the facet joint/medial branches of L4-L5 and L5-S1 bilaterally. Needle placement was confirmed with dye. After this we injected 3 mL bupivacaine 0.25% and Depo-Medrol 13 mg into each facet joint/medial branch of L4-L5 and L5-S1 bilaterally. We used a total of 80 mg Depo-Medrol for both levels bilaterally. The patient tolerated the procedure well with no complications. Plan and Disposition:: We will follow-up with her in 2 weeks. Will reevaluate symptoms at that time. If these are successful we can do RFA to the facet joint/medial branches of L4-5 and L5-S1 bilaterally.
[2020-05-06 13:55] VITALS: BP 176/99; PULSE 74; RESP 18; O2SAT 99
== END 2020-05-06 13:55 | disposition home or self-care (01) ==
LOC: SC.PAINP 13:10
PROVIDERS: PCP Family Medicine; Visit Provider Anesthesiology
DX: M51.36 Other intervertebral disc degeneration, lumbar region (principal); M12.88 Other specific arthropathies, not elsewhere classified, other specified site; M47.816 Spondylosis without myelopathy or radiculopathy, lumbar region; I10 Essential (primary) hypertension; I49.9 Cardiac arrhythmia, unspecified; J45.909 Unspecified asthma, uncomplicated; Z72.0 Tobacco use; Z79.899 Other long term (current) drug therapy
CPT/HCPCS: 64493; 64494; J1030; Q9966

== ENCOUNTER → 2020-05-30 09:52 | Outpatient (POV) | payer MEDICAID, SELFPAY ==
[2020-05-30 10:01] VITALS: BP 121/74; PULSE 77; RESP 18; TEMP 36.8; O2SAT 98; BMI 21.2
--- NOTE | 2020-05-30 10:08 | HMH.PAINSOAP ---
[facility] Pain Management SOAP Note Subjective:: Patient is a pleasant 65-year-old white female who we are treating for low back pain. With lumbar spondylosis and lumbar facet arthropathy. Patient gets good relief with her medial branch blocks. She is had over 2 of these. Patient gets 90% relief during the time that she has the numbing medicine available to her. They last 1 to 2 days. She is had an RFA in the past which helped up to 80% for over 9 months. Patient is interesting in getting this repeated. She rates her pain today a 5 out of 10. She has a positive lumbar facet loading. Patient is tender over her facet joints. Patient has difficulty with twisting motions. Patient is not on any anticoagulation therapy. She is failed over 6 months of conservative therapy including medications, anti-inflammatories. Patient also having muscle cramps at this time. She does have a history of fluid retention. I discussed with her she may want to discuss this with her primary care physician to ensure that she is not having any electrolyte imbalances. ROS General: no recent weight change, no fever, no sleep disturbances Respiratory: no cough, no shortness of air, no recurring pulmonary infections Cardiovascular/Peripheral Vascular: No chest pain, No palpitations, no edema, no shortness of breath. Gastrointestinal: no new onset incontinence, normal bowel movements reported Genitourinary: no new onset incontinence Musculoskeletal: Back pain Psychiatric: normal mood/ affect Neurological: [denies new onset weakness in extremities], [denies new onset balance issues] Objective:: Physical Exam General: Alert and oriented x3, no acute distress, pleasant and cooperative, [on room air] Lungs: Resps E/U, Symmetrical chest expansion, Eyes: PERRL Musculoskeletal: Flexion and extension of lumbar spine somewhat guarded secondary to pain, deep tendon reflexes normal, strength in upper and lower extremities [5/5], antalgic gait noted Neurological: speech clear, reservoir engineering consultant equal, no gross sensory deficits Assessment:: 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 I will follow-up with her after this reassess her symptoms at that time she has been instructed to call the office if she has any issues prior to her next appointment. Dr. Eric has reviewed this note and agrees with this plan of care. This note was dictated using voice recognition software and may contain errors or omissions [facility] History I have reviewed the patient's past medical history: Yes Medical History: Reports:: Arrhythmia, Hyperlipidemia, Hypertension Denies:: Cancer, Diabetes Mellitus Type 1, Diabetes Mellitus Type 2, MRSA, Seizures *Have you ever received a pneumonia vaccine?: Yes *Have you received a flu vaccine this season?: Yes Other Medical History: Denies: Blood Transfusion Reaction Other Surgeries: Yes: No Previous Surgery, Tubal Ligation Amputation: No Fractures: No - *Social History Smoking Status: Current every day smoker Tobacco Type: cigarettes # Packs/Day (cigarettes): 1 Alcohol Intake: never *Occupational Status:: other Housing: house Household Members: other *Travel in the last 8 weeks: None Family Hx:: No significant family history
== END ==
PROVIDERS: PCP Family Medicine; Visit Provider Clinical Nurse Specialist Family Health
DX: M51.36 Other intervertebral disc degeneration, lumbar region (principal); M47.816 Spondylosis without myelopathy or radiculopathy, lumbar region; M54.06 Panniculitis affecting regions of neck and back, lumbar region
CPT/HCPCS: 99212

== ENCOUNTER 2020-06-17 09:00 | Day surgery (SDC) | payer MEDICAID, SELFPAY ==
[2020-06-17 09:17] VITALS: BP 167/80; PULSE 87; RESP 18; TEMP 36.6; O2SAT 98; BMI 21.2
[2020-06-17 10:18] VITALS: BP 152/94; PULSE 82; RESP 18
[2020-06-17 10:25] VITALS: BP 152/78; PULSE 82; RESP 18; O2SAT 98
[2020-06-17 10:35] VITALS: BP 151/98; PULSE 82; RESP 20; O2SAT 98
--- NOTE | 2020-06-17 10:39 | HMH.PMPROC ---
- Procedure Date: 06/17/20 Time: 10:39 Anesthesiologist:: Shahram Eric MD Complications:: None Pre-procedure Diagnosis:: Degenerative disc disease of lumbar spine with lumbar spondylosis and lumbar facet arthropathy Post-procedure Diagnosis:: Same Indications for Procedure:: This patient is a pleasant 65-year-old white female who we are treating for low back pain with lumbar spondylosis and lumbar facet arthropathy. She got good relief from previous medial branch blocks. She has had RFA in the past which is helped tremendously. We will do left-sided radiofrequency ablation of the facet joints of L4-5 and L5-S1 under fluoroscopy. Procedure Details:: Lumbar RFA informed consent was obtained and the risk and benefits of the procedure was explained to the patient. Patient was placed prone on the procedure table. The patient was prepped and draped in sterile fashion. C-arm fluoroscopy was used to view the lumbar spine. The skin and subcutaneous tissues were anesthetized using lidocaine. I placed 20-gauge RF needles into the facet joints of L4-5 and L5-S1 levels on the left side. We underwent sensory stimulation. There is good sensory stimulation at 0.8 V. We underwent motor stimulation. There is no motor stimulation at 2 V. We then anesthetized these levels with lidocaine and Depo-Medrol. I used a total of 40 mg Depo-Medrol for both levels. I then burned both levels of L4-5 and L5-S1 facet joint/medial branches on the left side for 4 minutes at 80 ?C. Patient tolerated the procedure well with no complications. Plan and Disposition:: We will follow-up with her in 2 weeks. Will reevaluate her symptoms at that time.
== END 2020-06-17 10:46 | disposition home or self-care (01) ==
LOC: SC.PAINP 09:01
PROVIDERS: PCP Family Medicine; Visit Provider Anesthesiology
DX: M51.36 Other intervertebral disc degeneration, lumbar region (principal); M47.816 Spondylosis without myelopathy or radiculopathy, lumbar region; M54.06 Panniculitis affecting regions of neck and back, lumbar region; I10 Essential (primary) hypertension; Z82.49 Family history of ischemic heart disease and other diseases of the circulatory system; Z72.0 Tobacco use; K21.9 Gastro-esophageal reflux disease without esophagitis; J45.909 Unspecified asthma, uncomplicated; F41.9 Anxiety disorder, unspecified; F32.9 Major depressive disorder, single episode, unspecified; G43.909 Migraine, unspecified, not intractable, without status migrainosus
CPT/HCPCS: 64635; 64636; J1040

== ENCOUNTER 2020-07-15 13:33 | Day surgery (SDC) | payer MEDICAID, SELFPAY ==
[2020-07-15 14:08] VITALS: BP 154/98; PULSE 80; RESP 18; TEMP 36.3; O2SAT 98; BMI 21.2
[2020-07-15 14:29] VITALS: BP 125/78; BP 129/89; PULSE 78; PULSE 84; RESP 18; O2SAT 98
[2020-07-15 14:48] VITALS: BP 154/80; PULSE 80; RESP 18; O2SAT 98
--- NOTE | 2020-07-15 15:23 | HMH.PMPROC ---
- Procedure Date: 07/15/20 Time: 15:23 Anesthesiologist:: Shahram Eric MD Complications:: None Pre-procedure Diagnosis:: Degenerative disc disease of lumbar spine with lumbar spondylosis and lumbar facet arthropathy Post-procedure Diagnosis:: Same Indications for Procedure:: This patient is a pleasant 65-year-old white female who we are treating for low back pain with lumbar spondylosis and lumbar facet arthropathy. She is done very well with previous medial branch blocks. She also had RFA of the left side which is 80 to 90% better. She presents for RF ablation of the facet joints of L4-5 and L5-S1 on the right side today. Procedure Details:: Lumbar RFA informed consent was obtained and the risk and benefits of the procedure was explained to the patient. Patient was placed prone on the procedure table. The patient was prepped and draped in sterile fashion. C-arm fluoroscopy was used to view the lumbar spine. The skin and subcutaneous tissues were anesthetized using lidocaine. I placed 20-gauge RF needles into the facet joints of L4-5 and L5-S1 levels on the right side. We underwent sensory stimulation. There is good sensory stimulation at 0.8 V. We underwent motor stimulation. There is no motor stimulation at 2 V. We then anesthetized these levels with lidocaine and Depo-Medrol. I used a total of 40 mg Depo-Medrol for both levels. I burned both levels of L4-5 and L5-S1 on the right side each one at 80 ?C for 4 minutes. Patient tolerated the procedure well with no complications. Plan and Disposition:: We will follow-up with her in 1 month. Will reevaluate her symptoms at that time.
== END 2020-07-15 14:48 | disposition home or self-care (01) ==
LOC: SC.PAINP 13:34
PROVIDERS: PCP Family Medicine; Visit Provider Anesthesiology
DX: M51.36 Other intervertebral disc degeneration, lumbar region (principal); M47.816 Spondylosis without myelopathy or radiculopathy, lumbar region; M54.06 Panniculitis affecting regions of neck and back, lumbar region; I10 Essential (primary) hypertension; Z72.0 Tobacco use; J45.909 Unspecified asthma, uncomplicated; Z79.899 Other long term (current) drug therapy
CPT/HCPCS: 64635; 64636; J1040

== ENCOUNTER → 2020-08-11 13:57 | Outpatient (POV) | payer MEDICAID, SELFPAY ==
[2020-08-11 14:09] VITALS: BP 125/55; PULSE 88; RESP 18; TEMP 36.8; O2SAT 99; BMI 21.2
--- NOTE | 2020-08-11 16:24 | HMH.PAINSOAP ---
[facility] Pain Management SOAP Note Subjective:: Patient is a very pleasant 65-year-old white female who we are treating for low back pain with lumbar spondylosis and lumbar facet arthropathy. She does well with the lumbar RFA she is following up after her most recent one. She rates her pain a 5 out of 10 however she is doing quite well she states she is having some burning in her low back we discussed a compounding cream. She is agreeable. She is continuing to work. Overall doing well ROS General: no recent weight change, no fever, no sleep disturbances Respiratory: no cough, no shortness of air, no recurring pulmonary infections Cardiovascular/Peripheral Vascular: No chest pain, No palpitations, no edema, no shortness of breath. Gastrointestinal: no new onset incontinence, normal bowel movements reported Genitourinary: no new onset incontinence Musculoskeletal: Back pain Psychiatric: normal mood/ affect Neurological: [denies new onset weakness in extremities], [denies new onset balance issues] Objective:: Physical Exam General: Alert and oriented x3, no acute distress, pleasant and cooperative, [on room air] Lungs: Resps E/U, Symmetrical chest expansion, Eyes: PERRL Musculoskeletal: Flexion and extension of lumbar spine somewhat guarded secondary to pain, deep tendon reflexes normal, strength in upper and lower extremities [5/5], slightly antalgic gait noted Neurological: speech clear, commercial analyst equal, no gross sensory deficits Assessment:: Degenerative disc disease lumbar spine lumbar spondylosis and lumbar facet arthropathy, back pain Plan:: See the patient back in 2 months reassess her symptoms at that time we will give her a compounding cream to see if this is beneficial for her. I will follow-up with her after this reassess her symptoms at that time she has been instructed to call our office if she has any issues prior to her next appointment. Dr. Eric has reviewed this note and agrees with this plan of care. This note was dictated using voice recognition software and may contain errors or omissions [facility] History I have reviewed the patient's past medical history: Yes Medical History: Reports:: Arrhythmia, Hyperlipidemia, Hypertension Denies:: Cancer, Diabetes Mellitus Type 1, Diabetes Mellitus Type 2, MRSA, Seizures *Have you ever received a pneumonia vaccine?: Yes *Have you received a flu vaccine this season?: Yes Other Medical History: Denies: Blood Transfusion Reaction Other Surgeries: Yes: No Previous Surgery, Tubal Ligation Amputation: No Fractures: No - *Social History Smoking Status: Current every day smoker Tobacco Type: cigarettes # Packs/Day (cigarettes): 1 Alcohol Intake: never *Occupational Status:: other Housing: house Household Members: other *Travel in the last 8 weeks: None Family Hx:: No significant family history
== END ==
PROVIDERS: PCP Family Medicine; Visit Provider Clinical Nurse Specialist Family Health
DX: M51.36 Other intervertebral disc degeneration, lumbar region (principal); M47.896 Other spondylosis, lumbar region; M54.06 Panniculitis affecting regions of neck and back, lumbar region
CPT/HCPCS: 99212; G0463